=== PATIENT | female | born 1985 | race Two or more races ===

== ENCOUNTER 2024-09-28 02:31 | Emergency (ER) | payer OTHER ==
[~2024-09-28] VITALS: Ht 157.5 cm; Wt 56.7 kg
[2024-09-28 02:45] VITALS: BP 133/68; O2SAT 100
[2024-09-28] MEDS ORDERED: 0.9 % SODIUM CHLORIDE 1,000 ML IV STA (06:44)
[2024-09-28] MEDS ORDERED: KETOROLAC TROMETHAMINE 30 MG VIAL IV STA (06:45)
[2024-09-28] MEDS ORDERED: PROMETHAZINE HCL 50 MG/ML AMPUL IM STA (06:45)
[2024-09-28] MEDS ORDERED: MEPERIDINE HCL/PF 50 MG/ML VIAL IM STA (06:45)
[2024-09-28] MEDS ORDERED: PROMETHAZINE HCL 50 MG/ML AMPUL IM ONE (06:47)
[2024-09-28 08:11] LABS: HEMATOCRIT 40.2 % (36.0-45.00); MEAN CELL VOLUME 90.1 fL (80.00-100.00); MEAN CORPUSCULAR HEMOGLOBIN 31.4 pg (27.00-32.0); MEAN CORPUSCULAR HGB CONC 34.8 g/dl (32.0-36.0); PLATELET COUNT 249 K/uL (150-450); RED BLOOD COUNT 4.46 M/uL (4.00-6.00); RED CELL DISTRIBUTION WIDTH 12.8 % (11.5-14.5)
[2024-09-28 08:45] LABS: INR 0.99; PARTIAL THROMBOPLASTIN TIME 27.9 SECONDS (22.0-34.0); PROTHROMBIN TIME 10.8 SECONDS (9.0-11.5)
[2024-09-28 08:55] LABS: CALCIUM 8.7 mg/dL (8.5-10.1); CREATININE SERUM 0.55 mg/dL (0.55-1.02); GFR 122.42; POTASSIUM 3.92 mEq/L (3.5-5.1)
== END 2024-09-28 09:11 | disposition home or self-care (01) ==
LOC: ER 02:33
DX: D27.0 Benign neoplasm of right ovary (principal); R10.2 Pelvic and perineal pain
CPT/HCPCS: 36415; 76856; 96365; 96366; 96372; 99284; J1885; J2550; J3490; J7030